=== PATIENT | female | born 1975 | race Caucasian/White ===

== ENCOUNTER 2018-03-24 11:28 | Outpatient (CLI) | payer OTHER | END 2018-03-24 11:42 | disposition home or self-care (01) | LOC: SONOGRAMA 11:28 | DX: N60.11 Diffuse cystic mastopathy of right breast (principal) ==

== ENCOUNTER 2024-07-13 10:52 | Outpatient (CLI) | payer OTHER | END 2024-07-13 10:58 | disposition home or self-care (01) | LOC: SONOGRAMA 10:52 | PROVIDERS: ATTEND Pathology Anatomic Pathology & Clinical Pathology | DX: D24.1 Benign neoplasm of right breast (principal); N64.59 Other signs and symptoms in breast ==